=== PATIENT | female | born 1930 | race Two or more races ===

== ENCOUNTER → 2018-06-10 | Outpatient (CLI) | payer MEDICARE ==
[~2018-06-10] MED LIST: GADOBUTROL 10 MMOL/10 ML PFS ONE
== END | disposition home or self-care (01) ==
LOC: CFH 12:38
PROVIDERS: ATTEND Radiology Radiation Oncology
DX: G31.9 Degenerative disease of nervous system, unspecified (principal); I67.82 Cerebral ischemia; I63.81 Other cerebral infarction due to occlusion or stenosis of small artery; I10 Essential (primary) hypertension
CPT/HCPCS: 70543; 70553; A9585

== ENCOUNTER → 2018-07-16 | Outpatient (CLI) | payer MEDICARE | END | disposition home or self-care (01) | LOC: ROC 07:25 | PROVIDERS: ATTEND Radiology Radiation Oncology | DX: D32.0 Benign neoplasm of cerebral meninges (principal) | CPT/HCPCS: 99212; G0463 ==